=== PATIENT | female | born 1965 | race Caucasian/White ===

== ENCOUNTER 2018-02-04 22:47 | Emergency (ER) | payer SELFPAY ==
[2018-02-04] MEDS ORDERED: methylPREDNISolone Sod Succ/PF 125 MG/2 ML VIAL ONE (23:15)
[2018-02-04 23:18] LABS: #Basophils 0.1 thou/uL (0.0-0.2); #Eosinphils 0.9 thou/uL (0.0-0.7); #Lymphocytes 1.8 thou/uL (1.20-3.40); #Monocytes 0.5 thou/uL (0.11-0.59); #Neutrophils 4.4 thou/uL (1.40-6.50); %Basophils 1.1 % (0.0-1.0); %Eosinophils 11.9 % (0.0-10.0); %Lymphocytes 23.1 % (21.0-51.0); %Monocytes 6.4 % (0.0-10.0); %Neutrophils 57.6 % (42.0-75.0); Mean Corpuscular HGB CONC 34.9 g/dL (32.0-36.0); Mean Corpuscular Hemoglobin 26.8 pg (27.0-31.0); Mean Corpuscular Volume 76.8 fl (81.0-99.0); Platelet Count 245 thou/uL (130-400); RBC Distribution Width 13.4 % (11.5-14.5); Red Blood Cell (RBC) Count 4.85 mill/uL (4.20-5.40); White Blood Cell (WBC) Count 7.7 thou/uL (4.8-10.8)
--- NOTE | 2018-02-04 23:32 | RAD ---
PORTABLE CHEST ONE VIEW: 02/04/18 at 11:32 p.m. HISTORY: Shortness of breath, asthma. FINDINGS: Comparison is made with the exam of 10/24/13. The heart size is normal. The lungs are well expanded without focal areas of consolidation, pneumotho rax or pleural effusions. IMPRESSION: No acute process. POS: [facility]
[2018-02-04 23:34] LABS: ALT (SGPT) 16 U/L (8-55); AST (SGOT) 16 U/L (5-34); Albumin 4.1 g/dL (3.5-5.0); Alkaline Phosphatase 93 U/L (40-150); Anion Gap 14 mmol/L (10-20); BUN (Urea Nitrogen) 10 mg/dL (9.8-20.1); Bilirubin, Total 0.4 mg/dL (0.2-1.2); Calc. Creatinine Clearance 0 mL/min (70-130); Calcium 9.8 mg/dL (7.8-10.44); Carbon Dioxide 24 mmol/L (22-29); Chloride 107 mmol/L (98-107); Estimated GFR-MDRD 60; Glucose 92 mg/dL (70-105); Potassium 3.9 mmol/L (3.5-5.1); Protein, Total 8.1 g/dL (6.0-8.3); Sodium 141 mmol/L (136-145)
[2018-02-04 23:35] LABS: CKMB 0.9 ng/mL (0-6.6); Troponin I Less than 0.010 ng/mL (< 0.028)
[2018-02-05] MEDS ORDERED: Magnesium Sulfate 2 GM/NS 0.9% 50 ML BAG ONE (00:05)
[2018-02-05] MEDS ORDERED: diphenhydrAMINE 50 MG/ML VIAL ONE (00:59)
== END 2018-02-05 01:15 | disposition home or self-care (01) ==
LOC: SCSER 22:47
DX: J45.901 Unspecified asthma with (acute) exacerbation (principal); E78.5 Hyperlipidemia, unspecified; I10 Essential (primary) hypertension; F41.9 Anxiety disorder, unspecified; F32.9 Major depressive disorder, single episode, unspecified; Z79.899 Other long term (current) drug therapy
CPT/HCPCS: 71045; 80053; 82553; 84484; 85025; 93005; 94640; 96361; 96365; 96375; J1200; J2930; J3475; J7620

== ENCOUNTER 2018-03-23 01:47 | Emergency (ER) | payer SELFPAY ==
[2018-03-23 04:47] LABS: Bilirubin Negative (Negative); Blood, Urine Negative (Negative); Clarity CLEAR (Clear); Glucose, Urine (Dipstick) Negative (Negative); Leukocyte Small (Negative); Nitrite Negative (Negative); Protein, Urine (Dipstick) Negative (Neg-Trace); Specific Gravity, Urine 1.006 (1.002-1.036); Urobilinogen 0.2 mg/dL (0.2-1.0)
[2018-03-23 04:49] LABS: Bacteria/HPF None Seen HPF (None Seen); Hyaline Casts/LPF 0-3 HYALINE CAST LPF (0-3 Hyaline); RBC/HPF 0-3 HPF (0-3); Squamous Epithelial 0-3 HPF (0-3)
[2018-03-23] MEDS ORDERED: cefTRIAXone\\ROCEPHIN 1 GM VIAL ONE (07:05)
[2018-03-23] MEDS ORDERED: Ondansetron ODT 4 MG TAB ONE (07:05)
[2018-03-23 07:12] LABS: #Eosinphils 0.8 thou/uL (0.0-0.7); #Lymphocytes 2.2 thou/uL (1.20-3.40); #Monocytes 0.5 thou/uL (0.11-0.59); #Neutrophils 4.1 thou/uL (1.40-6.50); %Basophils 0.4 % (0.0-1.0); %Eosinophils 10.9 % (0.0-10.0); %Lymphocytes 29.1 % (21.0-51.0); %Monocytes 5.9 % (0.0-10.0); %Neutrophils 53.7 % (42.0-75.0); Hemoglobin 12.5 g/dL (12.0-16.0); Mean Corpuscular HGB CONC 34.6 g/dL (32.0-36.0); Mean Corpuscular Hemoglobin 27.5 pg (27.0-31.0); Mean Corpuscular Volume 79.4 fl (81.0-99.0); Mean Platelet Volume 7.2 fL (7.4-10.4); Platelet Count 235 thou/uL (130-400); RBC Distribution Width 14.1 % (11.5-14.5); Red Blood Cell (RBC) Count 4.55 mill/uL (4.20-5.40); White Blood Cell (WBC) Count 7.6 thou/uL (4.8-10.8)
[2018-03-23] MEDS ORDERED: cefTRIAXone\\ROCEPHIN 1 GM in Sodium Chloride 0.9% 100 ML IVPB SCH (07:15)
[2018-03-23 07:28] LABS: ALT (SGPT) 12 U/L (8-55); AST (SGOT) 16 U/L (5-34); Albumin 3.9 g/dL (3.5-5.0); Alkaline Phosphatase 89 U/L (40-150); Anion Gap 12 mmol/L (10-20); BUN (Urea Nitrogen) 9 mg/dL (9.8-20.1); Bilirubin, Total 0.5 mg/dL (0.2-1.2); Calc. Creatinine Clearance 0 mL/min (70-130); Calcium 9.6 mg/dL (7.8-10.44); Carbon Dioxide 25 mmol/L (22-29); Chloride 105 mmol/L (98-107); Estimated GFR-MDRD 72; Globulin 3.8 g/dL (2.4-3.5); Glucose 94 mg/dL (70-105); Lipase 5 U/L (8-78); Potassium 3.8 mmol/L (3.5-5.1); Protein, Total 7.7 g/dL (6.0-8.3); Sodium 138 mmol/L (136-145)
--- NOTE | 2018-03-23 08:16 | CT ---
CT OF ABDOMEN AND PELVIS: DATE: 03/23/18. COMPARISON: None. HISTORY: Left-sided back pain for 3 days, left flank pain. TECHNIQUE: Serial axial CT imaging is obtained at 5 mm intervals from lung bases through pubic symphysis without contrast. Coronal reformatted imaging obtained. FINDINGS: The visualized lung bases demonstrate subtle nonspecific ground-glass opacity within the inferomedial aspect of the left lower lobe best seen on images 5 and 8. The lack of contrast limits assessment of the viscera, bowel vascular structures, and for lymphadenop athy. The gallbladder is surgically absent. No free intraperitoneal air or fluid. Liver, spleen, pancreas, adrenal glands, and kidneys unremarka ble. The uterus appears surgically absent. No evidence for bowel inflammatory change or obstruction. The appendix appears unremarkable. The osseous structures demonstrate no acute findings. IMPRESSION: 1. No evidence for nephrolithiasis or obstructive uropathy. 2. Patchy areas of nonspecific ground-glass opacity noted in the left lower lobe. This may be infla mmatory/infectious in nature. Recommend a followup chest CT in 4-6 weeks to document resolution foll owing treatment. CODE T POS: [facility]
== END 2018-03-23 08:53 | disposition home or self-care (01) ==
LOC: ERS 01:47
DX: N39.0 Urinary tract infection, site not specified (principal); J45.901 Unspecified asthma with (acute) exacerbation; E78.5 Hyperlipidemia, unspecified; I10 Essential (primary) hypertension; F31.9 Bipolar disorder, unspecified; F41.9 Anxiety disorder, unspecified; Z79.899 Other long term (current) drug therapy
CPT/HCPCS: 36415; 74176; 80053; 81003; 81015; 83690; 85025; 87086; 94640; 96365; 96375; J0696; J2270; J7050; J7620; Q0162

== ENCOUNTER 2019-09-20 11:35 | Inpatient (IN) | payer SELFPAY ==
--- NOTE | 2019-09-20 12:08 | RAD ---
XR Chest 1 View Portable History: Wheezing Comparison: Chest radiograph February 04, 2018 Findings: Lungs are clear. No pneumothorax or effusion. Cardiac silhouette and mediastinal contours a re within normal limits. Impression: No acute intrathoracic abnormality.
[2019-09-20] MEDS ORDERED: predniSONE 20 MG TAB ONE (12:19)
[2019-09-20 12:44] LABS: #Eosinphils 0.8 thou/uL (0.0-0.7); #Lymphocytes 1.3 thou/uL (1.20-3.40); #Monocytes 0.5 thou/uL (0.11-0.59); #Neutrophils 6.1 thou/uL (1.40-6.50); %Basophils 0.4 % (0.0-1.0); %Eosinophils 9.2 % (0.0-10.0); %Lymphocytes 14.9 % (21.0-51.0); %Monocytes 5.3 % (0.0-10.0); %Neutrophils 70.2 % (42.0-75.0); Hemoglobin 12.8 g/dL (12.0-16.0); Mean Corpuscular Hemoglobin 28.2 pg (27.0-31.0); Mean Platelet Volume 7.9 fL (7.4-10.4); Platelet Count 204 thou/uL (130-400); RBC Distribution Width 13.6 % (11.5-14.5); Red Blood Cell (RBC) Count 4.54 mill/uL (4.20-5.40); White Blood Cell (WBC) Count 8.7 thou/uL (4.8-10.8)
[2019-09-20 13:07] LABS: ALT (SGPT) 12 U/L (8-55); AST (SGOT) 18 U/L (5-34); Alkaline Phosphatase 83 U/L (40-110); Anion Gap 11 mmol/L (10-20); BUN (Urea Nitrogen) 8 mg/dL (9.8-20.1); Bilirubin, Total 0.4 mg/dL (0.2-1.2); Calc. Creatinine Clearance 0 mL/min (70-130); Calcium 9.6 mg/dL (7.8-10.44); Carbon Dioxide 27 mmol/L (22-29); Chloride 105 mmol/L (98-107); Estimated GFR-MDRD 80; Globulin 3.4 g/dL (2.4-3.5); Glucose 95 mg/dL (70-105); Protein, Total 7.4 g/dL (6.0-8.3); Sodium 139 mmol/L (136-145)
[2019-09-20] MEDS ORDERED: Albuterol Sulfate 2.5 mg/0.5 ml Neb ONE (14:16)
[2019-09-20] MEDS ORDERED: Albuterol Sulfate 1.25 MG/3 ML NEB ONE ×2 (14:16→14:19)
[2019-09-20] MEDS ORDERED: Albuterol Sulfate 2.5 mg/3 ml Neb ONE (14:19)
[2019-09-20] MEDS ORDERED: Magnesium 2 GM/50 ML BAG (IN WATER) ONE (15:03)
[2019-09-20 16:17] LABS: Base Excess-Venous 0.3 mmol/L (-2.0 to 3.0); Bicarbonate (HCO3v) 25.2 mmol/L (22.0-28.0); CO2 Tension (PvCO2) 40.7 mmHg (40.0-50.0); Calcium, Ionized 1.25 mmol/L (See Comments:); Chloride 104 mmol/L (98-107); Hemoglobin - Calc 13.8 g/dL (12.0-16.0); Potassium 3.6 mmol/L (3.5-5.1); Sodium 139 mmol/L (138-145); T. Carbon Dioxide 26.4 mmol/L (22.0-28.0); vO2 Saturation-calc 94.9 % (60.0-85.0)
[2019-09-20] MEDS: Guaifenesin DM 100-10/5 ML UDCUP PO PRN (20:45)
[2019-09-20 21:59] VITALS: BMI 27.1
[2019-09-20] MEDS: Acetaminophen 325 MG TAB PO PRN (22:31)
[2019-09-21] MEDS: methylPREDNISolone Sod Succ 40 MG VIAL IVP SCH ×3 (00:06→12:09)
--- NOTE | 2019-09-21 02:20 | HP ---
REASON FOR ADMISSION: Shortness of breath. HISTORY OF PRESENT ILLNESS: This is a 53-year-old female patient who presented to her health clinic complaining of shortness of breath. She did receive neb treatments there without any improvement. She was advised to come to the emergency room. In the ER, she was found to be hypoxic, but corrects easily with oxygen. She did receive DuoNebs and prednisone p.o., but continued to be short of breath. The patient states that for the past 3-4 months, her asthma has not been well controlled. She was supposed to be on Singulair and Advair, but she cannot tolerate these medication, because they interact with her psychiatric medications. Two weeks ago she was in contact with her granddaughter who was diagnosed with RSV and she knows that her asthma is very affected by allergens. For the past 5 days, she has been very short of breath, unable to ambulate from one point to another. She is coughing producing greenish and brownish phlegm. She does have chills, but did not report any fever. She has not been improving on her inhalers . PAST MEDICAL HISTORY: 1. High cholesterol. 2. Asthma. 3. Bipolar. 4. Depression. 5. Anxiety. 6. Panic attacks. ALLERGY: To erythromycin and penicillin, which makes her head feel light, but no rash. No swelling. No difficulty with breathing. Also, she is allergic to Neosporin, adhesives and latex. Also, she cannot tolerate Advair, which can make her agitated and cause her blisters on her lips in the past. She did have a biopsy of those blisters, they are found to be benign. Also, she cannot take Singulair, because it makes her agitated. SOCIAL HISTORY: She does not smoke. Does not drink alcohol. FAMILY HISTORY: Negative for heart disease. REVIEW OF SYSTEMS: All systems reviewed except the above-mentioned and found to be negative. PHYSICAL EXAMINATION: GENERAL: Awake, alert, oriented, does not appear in distress. VITAL SIGNS: Her blood pressure is 124/82, heart rate of 110, saturating 98% on 2 L cannula. HEENT: Head is nontraumatic, normocephalic. Pupils equal, reactive. Extraocular movements are intact. Nonicteric sclerae. Well injected conjunctivae. Oral mucosa normal. Nasal mucosa normal. NECK: Supple. No adenopathy. No murmur. Thyroid palpable. Trachea is midline. No supraclavicular adenopathy. HEART: S1, S2 regular. No murmur, no gallops. No frictional rubs, nondisplaced PMI. LUNGS: Decreased air entry bilaterally. Diffuse expiratory wheezes or rhonchi. Bowel sounds are positive. Nontender abdomen. No hepatosplenomegaly. EXTREMITIES: No lower extremity edema. No cyanosis. NEUROLOGIC: Cranial nerves II through XII within normal limits. Normal motor function. Normal sensory function and reflexes. LABORATORY DATA: Lab work shows WBC of 8.7, hemoglobin of 12.8, platelets 204. VBG shows a pH of 7.399, pCO2 of 40.7. IMAGING: Chest x-ray shows no acute abnormality. ASSESSMENT/PLAN: This is a 53-year-old female presenting with uncontrolled asthma. 1. Pulmonary. The patient will be on neb treatments and IV steroids. I am debating whether to start her on antibiotics. Her sputum is greenish brown and brownish in color. I might start her on a quinolone since she is allergic to other options. 2. In regard to her bipolar disorder, we will resume her current medications. 3. In regard to her high cholesterol, we will resume her current regimen. 4. For deep venous thrombosis prophylaxis, should be on sequential compression devices. Job ID: [id number]
[2019-09-21 07:14] LABS: Anion Gap 9 mmol/L (10-20); BUN (Urea Nitrogen) 8 mg/dL (9.8-20.1); Calc. Creatinine Clearance 96 mL/min (70-130); Calcium 9.3 mg/dL (7.8-10.44); Carbon Dioxide 28 mmol/L (22-29); Chloride 104 mmol/L (98-107); Estimated GFR-MDRD 78; Glucose 113 mg/dL (70-105); Potassium 3.6 mmol/L (3.5-5.1); Sodium 137 mmol/L (136-145)
--- NOTE | 2019-09-21 12:59 | PDOC.HOSPP ---
- Subjective Encounter Date: 09/21/19 Encounter Time: 12:56 Subjective: The patient continues to have persistent shortness of breath and wheezing . She denies cough. Two of her grand-daughters had RSV. She had severe headache last night and couldn't sleep because of it. She also has some mild muscle aches. Prior to admission, she was using her rescue inhaler 7 times a day. She states she stopped taking singulair and advair because she felt it was causing blisters to form on her lips. She does give a history of fever blisters but says she hasn't really had any since stopping her inhalers. Currently her lip feels numb but says that is from the lip biopsy that she had to rule out cancer. - Objective Vital Signs & Weight: Vital Signs (12 hours) Temp Pulse Resp BP Pulse Ox 09/21/19 12:40 83 18 97 09/21/19 11:23 98.1 F 87 20 109/75 97 09/21/19 08:00 97 09/21/19 07:26 79 18 97 09/21/19 07:16 98.1 F 87 20 119/82 95 09/21/19 04:45 97.5 F L 87 20 139/94 H 97 09/21/19 03:54 87 20 97 Weight Weight 158 lb 1 oz Result Diagrams: 09/20/19 12:36 09/21/19 06:11 Hospitalist ROS - Review of Systems Constitutional: denies: fever, chills Cardiovascular: denies: chest pain, palpitations, orthopnea - Medication Medications: Active Medications Generic Name Dose Route Start Last Admin Trade Name Conradq PRN Reason Stop Dose Admin Acetaminophen 650 mg 09/20/19 22:17 09/20/19 22:31 Tylenol PO 650 mg Q4H PRN Administration Fever/Mild Pain Albuterol/Ipratropium 3 ml 09/20/19 19:00 09/21/19 12:40 Duoneb NEB 3 ml [id number] JAREN Administration Albuterol/Ipratropium 3 ml 09/20/19 18:44 09/21/19 03:54 Duoneb NEB 3 ml Q3H PRN Administration SOB &/or Wheezing Guaifenesin/Dextromethorphan 10 ml 09/20/19 18:42 09/20/19 20:45 Robitussin Dm PO 10 ml Q4H PRN Administration Cough Levofloxacin 750 mg/ Device 150 mls @ 100 mls/hr 09/20/19 20:00 09/20/19 20: 44 IVPB 150 mls 2000 [facility] Administration - Exam General Appearance: NAD, awake alert Eye: PERRL, anicteric sclera ENT: normocephalic atraumatic, no oropharyngeal lesions, moist mucosa Neck: supple, symmetric, no JVD, no thyromegaly, no lymphadenopathy, no carotid bruit Heart: RRR, no murmur, no gallops, no rubs, normal peripheral pulses Respiratory: CTAB, no rales, no ronchi, normal chest expansion, no tachypnea, normal percussion Respiratory - other findings: diminished breath sounds bilaterally with diffuse wheezing Gastrointestinal: soft, non-tender, non-distended, normal bowel sounds, no palpable masses, no hepatomegaly, no splenomegaly, no bruit Extremities: no cyanosis, no clubbing, no edema Skin: normal turgor, no lesions, no rashes Neurological: cranial nerve grossly intact, normal sensation to touch, no weakness, no focal deficits, no new deficit Musculoskeletal: normal tone, normal strength, no muscle wasting Psychiatric: normal affect, normal behavior, A&O x 3 Hosp A/P - Plan Chest Xray: normal This is a 53 year old female with asthma exacerbation, possibly triggered by RSV Asthma exacerbation - continue IV steroids, will increase to 60 mg IV q6 hours - check respiratory viral panel - chest X ray was normall Depression Bipolar - wellbutrin and zoloft - seroquel Hyperlipidemia - continue pravastatin Code status: full code
[2019-09-21] MEDS: methylPREDNISolone Sod Succ/PF 125 MG/2 ML VIAL IVP SCH ×2 (17:54→23:13)
[2019-09-21] MEDS: Guaifenesin DM 100-10/5 ML UDCUP PO PRN (20:38)
[2019-09-21] MEDS: Acetaminophen 325 MG TAB PO PRN (20:39)
[2019-09-22] MEDS: methylPREDNISolone Sod Succ/PF 125 MG/2 ML VIAL IVP SCH ×4 (05:38→23:41)
--- NOTE | 2019-09-22 19:45 | PDOC.HOSPP ---
- Subjective Encounter Date: 09/22/19 Encounter Time: 14:00 Subjective: The patient states her breathing has improved, she has slight dry cough. She ambulated on room air and dropped to 86% and was 91% at rest and was told she needs 2L. Family states that they could hear wheezing outside the room last night but today not the case - Objective Vital Signs & Weight: Vital Signs (12 hours) Temp Pulse Resp BP Pulse Ox 09/22/19 19:18 97.9 F 88 18 115/77 100 09/22/19 19:13 89 16 96 09/22/19 13:15 92 18 09/22/19 08:00 95 Weight Weight 158 lb 1 oz I&O: 09/21/19 09/22/19 09/23/19 06:59 06:59 06:59 Intake Total 1820 742 Balance 1820 742 Result Diagrams: 09/20/19 12:36 09/21/19 06:11 Hospitalist ROS - Review of Systems Constitutional: denies: fever, chills - Medication Medications: Active Medications Generic Name Dose Route Start Last Admin Trade Name Freq PRN Reason Stop Dose Admin Acetaminophen 650 mg 09/20/19 22:17 09/21/19 20:39 Tylenol PO 650 mg Q4H PRN Administration Fever/Mild Pain Albuterol/Ipratropium 3 ml 09/20/19 19:00 09/22/19 19:13 Duoneb NEB 3 ml [id number] JAREN Administration Albuterol/Ipratropium 3 ml 09/20/19 18:44 09/21/19 03:54 Duoneb NEB 3 ml Q3H PRN Administration SOB &/or Wheezing Guaifenesin/Dextromethorphan 10 ml 09/20/19 18:42 09/21/19 20:38 Robitussin Dm PO 10 ml Q4H PRN Administration Cough Levofloxacin 750 mg/ Device 150 mls @ 100 mls/hr 09/20/19 20:00 09/21/19 20: 36 IVPB 150 mls 2000 JAREN Administration Methylprednisolone Sodium Succinate 60 mg 09/21/19 18:00 09/22/19 17:12 Solu-Medrol IVP 60 mg Q6HR JAREN Administration - Exam General Appearance: NAD, awake alert Eye: PERRL, anicteric sclera ENT: normocephalic atraumatic, no oropharyngeal lesions Neck: supple, symmetric, no JVD, no thyromegaly Heart: RRR, no murmur, no gallops, no rubs Respiratory: CTAB, no wheezes, no rales Respiratory - other findings: diminished breath sounds at the base Gastrointestinal: soft, non-tender, non-distended Extremities: no cyanosis, no clubbing, no edema Skin: normal turgor, no lesions, no rashes Neurological: cranial nerve grossly intact, normal sensation to touch, no focal deficits, no new deficit Hosp A/P - Plan Chest Xray: normal This is a 53 year old female with asthma exacerbation, possibly triggered by RSV Asthma exacerbation - continue IV steroids at 60 mg IV q6 hours - respiratory viral panel normal - chest X ray was normal Depression Bipolar - wellbutrin and zoloft - seroquel Hyperlipidemia - continue pravastatin Code status: full code
[2019-09-22] MEDS: Acetaminophen 325 MG TAB PO PRN (20:29)
[2019-09-22] MEDS: Guaifenesin DM 100-10/5 ML UDCUP PO PRN (20:29)
[2019-09-23] MEDS: methylPREDNISolone Sod Succ/PF 125 MG/2 ML VIAL IVP SCH ×2 (05:01→12:08)
[2019-09-23 07:44] LABS: Hemoglobin 12.2 g/dL (12.0-16.0); Mean Corpuscular HGB CONC 34.8 g/dL (32.0-36.0); Mean Corpuscular Hemoglobin 29.2 pg (27.0-31.0); Mean Platelet Volume 8.2 fL (7.4-10.4); Platelet Count 215 thou/uL (130-400); RBC Distribution Width 13.6 % (11.5-14.5); Red Blood Cell (RBC) Count 4.17 mill/uL (4.20-5.40); White Blood Cell (WBC) Count 10.7 thou/uL (4.8-10.8)
[2019-09-23 08:08] LABS: ALT (SGPT) 10 U/L (8-55); AST (SGOT) 12 U/L (5-34); Albumin 3.8 g/dL (3.5-5.0); Alkaline Phosphatase 70 U/L (40-110); Anion Gap 11 mmol/L (10-20); BUN (Urea Nitrogen) 14 mg/dL (9.8-20.1); Bilirubin, Total 0.2 mg/dL (0.2-1.2); Calc. Creatinine Clearance 101 mL/min (70-130); Calcium 9.7 mg/dL (7.8-10.44); Carbon Dioxide 25 mmol/L (22-29); Chloride 108 mmol/L (98-107); Estimated GFR-MDRD 83; Globulin 3.2 g/dL (2.4-3.5); Glucose 152 mg/dL (70-105); Potassium 3.9 mmol/L (3.5-5.1); Sodium 140 mmol/L (136-145)
[2019-09-23] MEDS ORDERED: Lorazepam 1 MG TAB PO PRN (14:11)
--- NOTE | 2019-09-23 14:37 | PDOC.HOSPP ---
- Subjective Encounter Date: 09/23/19 Encounter Time: 14:35 Subjective: Ms. Foster was seen today in follow-up of Asthma/COPD exacerbation. She says she is breathing a little better, but when she walks or talks she gets short of breath. - Objective Vital Signs & Weight: Vital Signs (12 hours) Temp Pulse Resp BP Pulse Ox 09/23/19 13:31 76 12 09/23/19 08:00 96 09/23/19 07:52 97.9 F 72 16 115/78 96 09/23/19 06:15 65 12 Weight Weight 158 lb 1 oz I&O: 09/22/19 09/23/19 09/24/19 06:59 06:59 06:59 Intake Total 1820 1312 Balance 1820 1312 Result Diagrams: 09/23/19 07:31 09/23/19 07:31 Hospitalist ROS - Medication Medications: Active Medications Generic Name Dose Route Start Last Admin Trade Name Freq PRN Reason Stop Dose Admin Acetaminophen 650 mg 09/20/19 22:17 09/22/19 20:29 Tylenol PO 650 mg Q4H PRN Administration Fever/Mild Pain Albuterol/Ipratropium 3 ml 09/20/19 19:00 09/23/19 13:31 Duoneb NEB 3 ml [id number] JAREN Administration Albuterol/Ipratropium 3 ml 09/20/19 18:44 09/21/19 03:54 Duoneb NEB 3 ml Q3H PRN Administration SOB &/or Wheezing Guaifenesin/Dextromethorphan 10 ml 09/20/19 18:42 09/22/19 20:29 Robitussin Dm PO 10 ml Q4H PRN Administration Cough Levofloxacin 750 mg/ Device 150 mls @ 100 mls/hr 09/20/19 20:00 09/22/19 20: 29 IVPB 150 mls 2000 JAREN Administration - Exam Eye: PERRL Heart: RRR, no murmur, no gallops, no rubs, normal peripheral pulses Respiratory: CTAB (with occasional rhonchi), no rales Gastrointestinal: soft, non-tender, non-distended, normal bowel sounds, no palpable masses, no hepatomegaly Extremities: no cyanosis, no edema Hosp A/P (1) Acute respiratory failure with hypoxemia Code(s): J96.01 - ACUTE RESPIRATORY FAILURE WITH HYPOXIA Status: Acute (2) Asthma exacerbation Code(s): J45.901 - UNSPECIFIED ASTHMA WITH (ACUTE) EXACERBATION Status: Acute (3) Bipolar disorder Code(s): F31.9 - BIPOLAR DISORDER, UNSPECIFIED Status: Chronic (4) Depression Code(s): F32.9 - MAJOR DEPRESSIVE DISORDER, SINGLE EPISODE, UNSPECIFIED Status : Chronic - Plan * Acute respiratory failure with hypoxemia- slowly improving- Will change the steroids to p.o. * Continue Duonebs, and Levaquin * I suspect she has some underlying COPD- will add Dulera- discussed getting an outpatient PFT * Bipolar Disorder- stable
[2019-09-23] MEDS: Mometasone/Formoterol 120 PUFF INHALER INH SCH (19:48)
[2019-09-23 19:55] VITALS: TEMP 97.8
[2019-09-23] MEDS ORDERED: Atorvastatin Calcium 10 MG TAB PO SCH (21:00)
[2019-09-24 07:32] VITALS: BP 116/76
[2019-09-24] MEDS ORDERED: predniSONE 20 MG TAB PO SCH (08:00)
[2019-09-24] MEDS ORDERED: Bupropion 150 MG XL TAB PO SCH (09:00)
[2019-09-24] MEDS: Mometasone/Formoterol 120 PUFF INHALER INH SCH (13:41)
--- NOTE | 2019-09-24 14:40 | PDOC.HOSPP ---
- Subjective Encounter Date: 09/24/19 Encounter Time: 14:38 Subjective: Ms. Foster was seen today in follow-up of Asthma/COPD exacerbation. She says she is feeling a bit better today, no new complaints. - Objective Vital Signs & Weight: Vital Signs (12 hours) Temp Pulse Resp BP Pulse Ox 09/24/19 13:41 76 16 09/24/19 08:00 97 09/24/19 07:30 97.8 F 76 18 116/76 97 Weight Weight 158 lb 1 oz I&O: 09/23/19 09/24/19 09/25/19 06:59 06:59 06:59 Intake Total 1312 1580 Balance 1312 1580 Result Diagrams: 09/23/19 07:31 09/23/19 07:31 Hospitalist ROS - Medication Medications: Active Medications Generic Name Dose Route Start Last Admin Trade Name Freq PRN Reason Stop Dose Admin Acetaminophen 650 mg 09/20/19 22:17 09/22/19 20:29 Tylenol PO 650 mg Q4H PRN Administration Fever/Mild Pain Albuterol/Ipratropium 3 ml 09/20/19 19:00 09/24/19 13:41 Duoneb NEB 3 ml [id number] JAREN Administration Albuterol/Ipratropium 3 ml 09/20/19 18:44 09/21/19 03:54 Duoneb NEB 3 ml Q3H PRN Administration SOB &/or Wheezing Atorvastatin Calcium 10 mg 09/23/19 21:00 09/23/19 20:48 Lipitor PO 10 mg HS JAREN Administration Bupropion HCl 150 mg 09/24/19 09:00 09/24/19 08:45 Wellbutrin Xl PO 150 mg DAILY JAREN Administration Guaifenesin/Dextromethorphan 10 ml 09/20/19 18:42 09/22/19 20:29 Robitussin Dm PO 10 ml Q4H PRN Administration Cough Levofloxacin 750 mg/ Device 150 mls @ 100 mls/hr 09/20/19 20:00 09/23/19 20: 47 IVPB 150 mls 2000 JAREN Administration Mometasone Furoate/Formoterol Fumar 1 puff 09/23/19 18:30 09/24/19 13:41 Dulera 100 Mcg/5 Mcg Inhaler INH 1 puff BID-RT JAREN Administration Prednisone 40 mg 09/24/19 08:00 09/24/19 08:45 Prednisone PO 40 mg QAM-WM JAREN Administration Quetiapine Fumarate 200 mg 09/23/19 21:00 09/23/19 20:47 Seroquel PO 200 mg HS JAREN Administration Sertraline HCl 200 mg 09/23/19 21:00 09/23/19 20:48 Zoloft PO 200 mg HS JAREN Administration - Exam Eye: PERRL, anicteric sclera Heart: RRR, no murmur, no gallops, no rubs, normal peripheral pulses Respiratory: CTAB, no wheezes, no rales, no ronchi, normal chest expansion Gastrointestinal: soft, non-tender, non-distended, normal bowel sounds Extremities: no edema Hosp A/P (1) Acute respiratory failure with hypoxemia Code(s): J96.01 - ACUTE RESPIRATORY FAILURE WITH HYPOXIA Status: Acute (2) Asthma exacerbation Code(s): J45.901 - UNSPECIFIED ASTHMA WITH (ACUTE) EXACERBATION Status: Acute (3) Bipolar disorder Code(s): F31.9 - BIPOLAR DISORDER, UNSPECIFIED Status: Chronic (4) Depression Code(s): F32.9 - MAJOR DEPRESSIVE DISORDER, SINGLE EPISODE, UNSPECIFIED Status : Chronic - Plan * Acute respiratory failure with hypoxemia- slowly improving- she tolerated the step down to oral steroids * Continue Duonebs, and Levaquin * Will check her oxygen levels again * Bipolar Disorder- stable * Hopefully home this evening
--- NOTE | 2019-09-24 19:08 | DIS ---
DATE OF ADMISSION: 09/20/2019 DATE OF DISCHARGE: 09/24/2019 DISCHARGE DISPOSITION: Home. DISCHARGE DIAGNOSES: 1. Acute respiratory failure with hypoxemia. 2. Asthma exacerbation. 3. Probable chronic obstructive pulmonary disease exacerbation. 4. History of bipolar disorder. 5. Depression. 6. Dyslipidemia. DISCHARGE MEDICATIONS: 1. Prednisone taper 40 mg p.o. daily for four days. 2. Dulera 100/5 mcg one puff twice daily. 3. Levaquin 500 mg p.o. daily for 4 days. 4. Zoloft 200 mg at bedtime. 5. Seroquel 200 mg at bedtime. 6. Pravastatin 40 mg at bedtime. 7. Lorazepam 1 mg daily. 8. Wellbutrin XL 150 mg p.o. daily. CODE STATUS: Full code. ALLERGIES: BACITRACIN, ERYTHROMYCIN BASE, LATEX, NATURAL RUBBER, NEOMYCIN, AND PENICILLIN. HOSPITAL COURSE: Ms. Foster is a pleasant 53-year-old female, who presented to the emergency room with complaints of shortness of breath as well as cough. She says she has DuoNeb at home, but this was not helping her symptoms. As a result, she came into the ER for evaluation. She was found to be in a presumed asthma exacerbation. She likely has some component of COPD as well. She admits to being exposed to quite a bit of secondhand smoke and her father had COPD as well and she could potentially have a hereditary form of COPD such as alpha-1 antitrypsin disorder. She was treated presumably for this with IV steroids, antibiotics, and DuoNeb and was placed on a long-acting beta agonist. She improved to the point where she could be weaned completely off oxygen and she will be discharged home with a prednisone taper as well as to continue her antibiotic course. She has been urged to follow up with her primary care physician in a couple of days and consider an outpatient pulmonary function test. Job ID: [id number]
--- NOTE | 2019-09-28 07:00 | PQF ---
CHANDLER Bass MD [id number] CLINICAL DOCUMENTATION CLARIFICATION FORM: POST DISCHARGE Addendum to original discharge summary date: ____ Late entry note date: __ DATE: 09/28/2019 ATTN: CHANDLER SYK MD Please exercise your independent, professional judgment in responding to the clarification form. Clinical indicators are provided on the bottom of this form for your review Diagnosis: Acute respiratory failure with hypoxemia Present on Admission (POA): [X ] Yes [ ] No [ ] Unable to determine Coding guidelines require hospitals to identify whether a diagnosis was present on admission (POA) or not. To accurately assign the appropriate POA indicator, this information must be clearly documented within the medical record. CLINICAL INDICATORS - SIGNS / SYMPTOMS / LABS -Mild respiratory distress-ED record, 09/20, Noe Witt MD -Hypoxia- ED record, 09/20, Noe Witt MD -presents with wheezing, dyspnea anfd hypoxia-ED record, 09/20, Noe Witt MD -she ambulated on room air and dropped to 86% and was 91%-Hospital PN, 09/22, Kimberly Dias MD -Acute respiratory failure with hypoxemia- 09/23, George Reddy MD RISK FACTORS: - Asthma exacerbation--Hospital PN, 09/21, Kimberly Dias MD TREATMENT: -DuoNeb- DEC, 09/20 -Albuterol Sulfate.IV- DEC, 09/20 (This form is maintained as a part of the permanent medical record) 2014 [employer]. All Rights Reserved Ev Gonzalez [not provided] [not provided] TUCKER
== END 2019-09-24 17:37 | disposition home or self-care (01) | DRG 189 ==
LOC: ERS 11:35 → T4-B 20:05
PROVIDERS: ADMIT Internal Medicine; ATTEND Internal Medicine
DX: J96.01 Acute respiratory failure with hypoxia (principal); J45.901 Unspecified asthma with (acute) exacerbation; J44.1 Chronic obstructive pulmonary disease with (acute) exacerbation; E78.00 Pure hypercholesterolemia, unspecified; F31.9 Bipolar disorder, unspecified; E78.5 Hyperlipidemia, unspecified; Z88.0 Allergy status to penicillin; Z88.8 Allergy status to other drugs, medicaments and biological substances; Z88.1 Allergy status to other antibiotic agents; Z91.040 Latex allergy status; Z90.710 Acquired absence of both cervix and uterus
CPT/HCPCS: 36415; 71045; 80048; 80053; 82330; 82803; 83880; 84484; 85025; 85027; 87633; 93005; 94150; 94640; 94644; 94760; 96365; J1956; J2920; J2930; J3475; J7512; J7611; J7620

== ENCOUNTER 2020-01-02 07:34 | Inpatient (IN) | payer OTHER ==
[2020-01-02] MEDS ORDERED: Acetaminophen 500 MG TAB ONE (08:01)
[2020-01-02 08:10] LABS: #Eosinphils 0.7 thou/uL (0.0-0.7); #Lymphocytes 1.7 thou/uL (1.20-3.40); #Monocytes 0.5 thou/uL (0.11-0.59); #Neutrophils 6.3 thou/uL (1.40-6.50); %Basophils 0.1 % (0.0-1.0); %Lymphocytes 17.9 % (21.0-51.0); %Monocytes 5.5 % (0.0-10.0); %Neutrophils 68.4 % (42.0-75.0); Hemoglobin 12.4 g/dL (12.0-16.0); Mean Corpuscular HGB CONC 34.5 g/dL (32.0-36.0); Mean Corpuscular Hemoglobin 28.2 pg (27.0-31.0); Mean Corpuscular Volume 81.8 fL (78.0-98.0); Mean Platelet Volume 7.8 fL (7.4-10.4); Platelet Count 242 thou/uL (130-400); RBC Distribution Width 14.5 % (11.5-14.5); Red Blood Cell (RBC) Count 4.41 mill/uL (4.20-5.40); White Blood Cell (WBC) Count 9.2 thou/uL (4.8-10.8)
--- NOTE | 2020-01-02 08:13 | RAD ---
Exam: Chest one view HISTORY:Cough. Comparison: 09/20/2019 FINDINGS: Cardiac silhouette: Normal Aorta: Unremarkable Pulmonary vessels: Normal Costophrenic angles: Clear LUNGS: No masses or consolidation. Pneumothorax: None Osseous abnormalities: None IMPRESSION: No acute cardiopulmonary process.
[2020-01-02 08:40] LABS: ALT (SGPT) 11 U/L (8-55); AST (SGOT) 18 U/L (5-34); Albumin 4.1 g/dL (3.5-5.0); Alkaline Phosphatase 89 U/L (40-110); Anion Gap 12 mmol/L (10-20); BUN (Urea Nitrogen) 5 mg/dL (9.8-20.1); Bilirubin, Total 0.6 mg/dL (0.2-1.2); Calc. Creatinine Clearance 0 mL/min (70-130); Calcium 9.2 mg/dL (7.8-10.44); Carbon Dioxide 25 mmol/L (22-29); Chloride 106 mmol/L (98-107); Estimated GFR-MDRD 79; Globulin 2.8 g/dL (2.4-3.5); Glucose 96 mg/dL (70-105); Potassium 3.7 mmol/L (3.5-5.1); Protein, Total 6.9 g/dL (6.0-8.3); Sodium 139 mmol/L (136-145)
[2020-01-02] MEDS ORDERED: Rocuronium Bromide 10 MG/ML (10ML VIAL) ONE (09:03)
[2020-01-02] MEDS ORDERED: PROPOFOL 200 MG/20 ML VIAL ONE (09:03)
[2020-01-02] MEDS ORDERED: Cefepime 2 GM VIAL ONE ×2 (10:07→10:10)
[2020-01-02] MEDS ORDERED: Magnesium 2 GM/50 ML BAG (IN WATER) ONE (10:07)
[2020-01-02] MEDS ORDERED: Ipratropium Oral Inhaler INH SCH (13:00)
[2020-01-02] MEDS ORDERED: Lorazepam 1 MG TAB PO PRN (13:02)
[2020-01-02 13:38] LABS: Base Excess (BEa) -4.6 mEq/L (-2.0 to +3.0); CO2 Tension 59.9 mmHg (35.0-45.0); Calcium, Ionized 1.23 mmol/L (1.12-1.30); Carboxyhemoglobin (COHb) 0.9 gm% (0.0-3.0); O2 Tension (PaO2), arterial 68.6 mmHg (80.0-100.0)
[2020-01-02 13:47] LABS: ALV-art Gradient 27.645 (0-20); Puncture Site RRA; pH, Arterial 7.22 (7.35-7.45)
[2020-01-02] MEDS: methylPREDNISolone Sod Succ 40 MG VIAL IVP SCH ×2 (13:50→22:23)
--- NOTE | 2020-01-02 14:31 | HP ---
HISTORY OF PRESENT ILLNESS: The patient is a 54-year-old female with history of chronic obstructive pulmonary disease, hyperlipidemia, and hypertension, who presented to the hospital with worsening shortness of breath over the past 3 days associated with cough productive of greenish sputum. In the ER, the patient was found to be febrile, tachypneic, and tachycardiac. Flu test was negative. The patient did have an exposure to flu, through her granddaughter about a couple of weeks ago. The patient also endorsed some episodes of diarrhea, but no vomiting or abdominal pain. During the time of my assessment, the patient appeared to be severely short of breath. She was not able to finish any sentences. REVIEW OF SYSTEMS: Negative except as noted in HPI. PAST MEDICAL HISTORY: As above. PAST SURGICAL HISTORY: Positive for nasal surgery, endometriosis since surgery, right finger surgery in addition to section and cholecystectomy. SOCIAL HISTORY: The patient denies alcohol use, illicit drug use, or smoking. PHYSICAL EXAMINATION: GENERAL: The patient is alert and oriented x3. She appears to be tachypneic. She is using her accessory muscles of respiration. NECK: Supple. LUNGS: Auscultation is showing decreased air entry and wheezing bilaterally. CARDIOVASCULAR: Showing normal S1 and S2. No murmurs, rubs, or gallops. The patient is tachycardic. ABDOMEN: Soft, nontender, and nondistended. NEUROLOGICAL: Unremarkable. LABORATORY DATA: ABG revealed evidence of respiratory acidosis with hypercarbia. ASSESSMENT: 1. Acute respiratory failure with hypoxia. 2. Chronic obstructive pulmonary disease exacerbation. 3. Rule out coronavirus and other respiratory viruses. 4. Hypertension. 5. Hyperlipidemia. PLAN: The patient will be admitted to the intensive care unit. She is not a candidate for nebulized treatments or BiPAP due to COVID-19 rule out. She will likely be intubated and mechanically ventilated. I have discussed this with Dr. Ozuna. We will also initiate IV corticosteroids and IV levofloxacin. Job ID: [id number] [facility]
[2020-01-02] MEDS ORDERED: Propofol 1,000 MG/100 ML VIAL IV ONE (14:36)
[2020-01-02] MEDS ORDERED: Ventilator Sedation Protocol 1 EACH FS ONE (14:48)
[2020-01-02] MEDS ORDERED: Vecuronium 10 MG VIAL IV PRN (14:49)
[2020-01-02] MEDS ORDERED: Magnesium Sulfate 3 GM in Sodium Chloride 0.9% 100 ML IVPB SCH (15:00)
--- NOTE | 2020-01-02 15:14 | CON ---
DATE OF CONSULTATION: 01/02/2020 HISTORY OF PRESENT ILLNESS: Ms. Foster is a 54-year-old female. She tells me she has asthma. She denies being a smoker. I did find a past visit where she was admitted with a diagnosis of COPD, but I do not find any old pulmonary function tests. She presented with several days of increasing shortness of breath. She says she has been homebound for several weeks. The last contact she says she has had, has been with a grandchild three weeks ago that had the flu. She was actually in the hospital in September and says she never really fully recovered from that hospitalization. The old records say her granddaughter had respiratory syncytial virus. I did find a respiratory panel done when she was in the hospital in September that showed that she was negative for RSV. She is barely able to speak in two words. She was admitted to the floor and then transferred to the ICU. PAST MEDICAL HISTORY: Remarkable for lipid disorder, asthma, bipolar illness, anxiety and panic attacks. ALLERGIES: SHE REPORTS ALLERGIES TO ERYTHROMYCIN AND PENICILLIN. THERE IS REPORT SHE DOES NOT TOLERATE ADVAIR, BUT I SUSPECT THAT IS BECAUSE OF THRUSH. SHE SAYS SINGULAIR MAKES HER AGITATED. SOCIAL HISTORY: She is a nonsmoker and nondrinker. FAMILY HISTORY: Negative for lung disease in early age. REVIEW OF SYSTEMS: Not otherwise obtainable. PHYSICAL EXAMINATION: VITAL SIGNS: Heart rate 120, respiratory rates in the high 20s, blood pressure was 160/120. HEAD AND NECK: Unremarkable other than being obese. LUNGS: Clear. HEART: Regular rhythm. No S3. ABDOMEN: Soft and nontender. EXTREMITIES: Without clubbing, cyanosis, or edema. IMPRESSION: Status asthmaticus. Her chest radiograph is clear. Respiratory failure. Her blood gas showed pH of 7.22. I do not think she will turn around quickly. There is some question of COVID, although I feel that this is unlikely to be a COVID case, given the fact that she has been in the house most of the time. I am sure she has had contact with some body, but I think it is more likely that she simply never really gotten full control of her asthma since her last hospitalization. I have recommended intubation. I explained to her in detail and she agreed to proceed. CRITICAL CARE TIME: 40 minutes excluding procedure. Job ID: [id number] [facility]
[2020-01-02] MEDS ORDERED: DISCONTINUE PREVIOUS NARCOTIC PAIN MEDICATIONS AND BENZODIAZEPINES FS SCH (15:39)
[2020-01-02] MEDS ORDERED: Fentanyl BOLUS 250 ML IVPB PRN (15:39)
[2020-01-02] MEDS ORDERED: Propofol BOLUS 1,000 MG/100 ML VIAL IV PRN (15:39)
[2020-01-02] MEDS ORDERED: Lorazepam 2 MG/ML VIAL SLOW IVP PRN (15:39)
[2020-01-02] MEDS ORDERED: Morphine 2 MG/ML SYRINGE SLOW IVP PRN (15:39)
[2020-01-02] MEDS ORDERED: fentaNYL Citrate/PF 2,000 MCG in Sodium Chloride 0.9% 60 ML IV SCH (15:39)
[2020-01-02] MEDS ORDERED: Vecuronium 10 MG VIAL ONE (16:37)
[2020-01-02] MEDS: Sodium Chloride 0.45% 1,000 ML IV SCH (16:45)
--- NOTE | 2020-01-02 17:43 | OP ---
DATE OF PROCEDURE: 01/02/2020 PROCEDURE: Intubation. DESCRIPTION OF PROCEDURE: She was given 10 mg of etomidate. She cooperated with bite block being put in her mouth. Her throat was sprayed with Cetacaine spray. I was unable to quickly visualize her vocal cords, given her obesity, so the bronchoscope was advanced through her right naris easily to her cords and advanced through her cords. She was easily intubated at that point. She is connected to mechanical ventilation. We will connect her to the ventilator and begin frequent nebulizer treatments as well as IV steroids and empiric single agent antimicrobial therapy. She tolerated the procedure well. There were no endobronchial lesion seen on quick endobronchial inspection, both right and left lungs. Job ID: [id number]
[2020-01-02] MEDS: Atorvastatin Calcium 10 MG TAB PO SCH (22:22)
[2020-01-03] MEDS: Sodium Chloride 0.45% 1,000 ML IV SCH ×3 (01:46→20:23)
[2020-01-03 04:29] LABS: Band 1 % (5-11); Hemoglobin 11.5 g/dL (12.0-16.0); Lymphocytes 3 % (21-51); MDiff Complete? YES; Mean Corpuscular HGB CONC 33.8 g/dL (32.0-36.0); Mean Corpuscular Hemoglobin 27.6 pg (27.0-31.0); Mean Corpuscular Volume 81.8 fL (78.0-98.0); Mean Platelet Volume 7.7 fL (7.4-10.4); Monocytes 2 % (0-10); Neutrophil 94 % (42-75); Platelet Count 229 thou/uL (130-400); Platelet Morphology Comment Appears Adequate; RBC Distribution Width 14.3 % (11.5-14.5); Red Blood Cell (RBC) Count 4.14 mill/uL (4.20-5.40)
[2020-01-03 04:46] LABS: Anion Gap 12 mmol/L (10-20); BUN (Urea Nitrogen) 5 mg/dL (9.8-20.1); Calc. Creatinine Clearance 119 mL/min (70-130); Calcium 8.7 mg/dL (7.8-10.44); Carbon Dioxide 24 mmol/L (22-29); Chloride 106 mmol/L (98-107); Estimated GFR-MDRD 87; Glucose 124 mg/dL (70-105); Potassium 3.7 mmol/L (3.5-5.1); Sodium 138 mmol/L (136-145)
[2020-01-03] MEDS: methylPREDNISolone Sod Succ 40 MG VIAL IVP SCH ×3 (06:16→21:14)
[2020-01-03] MEDS: Enoxaparin Sodium 40 MG/0.4 ML SYRINGE SC SCH (07:36)
[2020-01-03] MEDS: Bupropion 150 MG XL TAB PO SCH (07:39)
[2020-01-03] MEDS ORDERED: FLU VACC QS2019-20(6MOS UP)/PF 60 MCG/0.5 ML SYRINGE IM ONE (09:00)
[2020-01-03] MEDS: Propofol 1,000 MG/100 ML VIAL IV PRN ×2 (09:10→18:49)
--- NOTE | 2020-01-03 09:19 | RAD ---
SINGLE VIEW CHEST: Date: 01/03/2020 COMPARISON: 01/02/2020. HISTORY: Ventilated patient with respiratory failure. FINDINGS: Single view of the chest shows normal sized cardiomediastinal silhouette. An endotracheal tube is see n with its tip at the lower border of the clavicles. A NG tube is seen in the stomach. There is no ev idence of consolidation. A small left pleural effusion is seen with adjacent atelectasis. IMPRESSION: Small left pleural effusion with adjacent atelectasis. POS: [facility]
--- NOTE | 2020-01-03 14:31 | PRG ---
DATE OF SERVICE: 01/03/2020 SUBJECTIVE: Joss Foster is in no distress today. Her COVID is ruled out. OBJECTIVE: VITAL SIGNS: Heart rate 102, blood pressure 137/86. NEUROLOGIC: She follows commands. She moves all extremities equally. LUNGS: Her expiratory phase has improved dramatically. HEART: Regular rhythm. ABDOMEN: Soft. EXTREMITIES: Without edema. LABORATORY DATA: White count 10, hemoglobin 11.5, platelets 229. Electrolytes are normal. COVID screen was negative. Chest x-ray shows no new infiltrates. IMPRESSION: Status asthmaticus with respiratory failure. Her radiograph shows some small area of atelectasis in her left base, which is likely secondary to mucus plugging. She will continue to be mechanically ventilated. We will consider weaning from mechanical ventilation tomorrow. CRITICAL CARE TIME: 30 minutes. Job ID: [id number] [facility]
[2020-01-03] MEDS: Atorvastatin Calcium 10 MG TAB PO SCH (20:10)
--- NOTE | 2020-01-03 20:51 | PDOC.HOSPP ---
- Subjective Encounter Date: 01/03/20 Subjective: The patient remains on a ventilator. - Objective Vital Signs & Weight: Vital Signs (12 hours) Temp Pulse Resp BP Pulse Ox 01/03/20 19:00 99.7 F H 01/03/20 18:36 91 01/03/20 18:35 96 16 98 01/03/20 16:00 99.4 F 14 100 01/03/20 15:42 99 01/03/20 13:37 102 H 137/86 01/03/20 10:25 94 01/03/20 10:00 13 Weight Admit Weight 179 lb Weight 179 lb 14.355 oz Most Recent Monitor Data Heart Rate from ECG 97 NIBP 143/94 NIBP BP-Mean 110 Respiration from ECG 15 SpO2 96 I&O: 01/02/20 01/03/20 01/04/20 06:59 06:59 06:59 Intake Total 1692.7 338 Output Total 1805 2015 Balance -112.3 -1677 Result Diagrams: 01/03/20 04:00 01/03/20 04:00 Hospitalist ROS - Medication Medications: Active Medications Generic Name Dose Route Start Last Admin Trade Name Freq PRN Reason Stop Dose Admin Albuterol/Ipratropium 3 ml 01/02/20 16:00 01/03/20 18:35 Duoneb NEB 3 ml [id number] JAREN Administration Atorvastatin Calcium 10 mg 01/02/20 21:00 01/03/20 20:10 Lipitor PO 10 mg HS JAREN Administration Bupropion HCl 150 mg 01/03/20 09:00 01/03/20 07:39 Wellbutrin Xl PO 150 mg DAILY JAREN Administration Enoxaparin Sodium 40 mg 01/03/20 09:00 01/03/20 07:36 Lovenox SC 40 mg 0900 JAREN Administration Levofloxacin 500 mg/ Device 100 mls @ 100 mls/hr 01/03/20 10:00 01/03/20 15: 40 IVPB 100 mls Q24HR JAREN Administration Sodium Chloride 1,000 mls @ 100 mls/hr 01/02/20 15:00 01/03/20 20:23 1/2 Normal Saline IV Not Given .Q10H JAREN Lorazepam 2 mg 01/02/20 15:39 01/02/20 16:40 Ativan SLOW IVP 02/01/20 15:39 2 mg Q1H PRN Administration Breakthrough agitation Methylprednisolone Sodium Succinate 40 mg 01/02/20 14:00 01/03/20 15:40 Solu-Medrol IVP 40 mg Q8HR JAREN Administration Propofol 1,000 mg 01/02/20 15:39 01/03/20 18:49 Diprivan IV 02/01/20 15:39 1,000 mg INF PRN Administration TO ACHIEVE GOAL RASS Protocol Quetiapine Fumarate 200 mg 01/02/20 21:00 01/03/20 20:10 Seroquel PO 200 mg HS JAREN Administration Sertraline HCl 150 mg 01/02/20 21:00 01/03/20 20:09 Zoloft PO 150 mg HS JAREN Administration Sodium Chloride 10 ml 01/02/20 21:00 01/03/20 20:10 Flush - Normal Saline IVF 10 ml Q12HR JAREN Administration - Exam Neck: supple Heart: RRR Respiratory: rhonchi, wheezes Gastrointestinal: soft, normal bowel sounds Hosp A/P (1) COPD exacerbation Code(s): J44.1 - CHRONIC OBSTRUCTIVE PULMONARY DISEASE W (ACUTE) EXACERBATION Status: Acute (2) Acute respiratory failure with hypoxemia Code(s): J96.01 - ACUTE RESPIRATORY FAILURE WITH HYPOXIA Status: Acute - Plan Coronavirus PCR is negative. Continue mechanical ventilation management per pulmonology. Continue scheduled nebulized treatments, corticosteroids, and antibiotics.
[2020-01-04] MEDS: Sodium Chloride 0.45% 1,000 ML IV SCH ×2 (02:10→16:10)
[2020-01-04 03:37] LABS: #Lymphocytes 0.8 thou/uL (1.20-3.40); #Monocytes 0.4 thou/uL (0.11-0.59); #Neutrophils 9.2 thou/uL (1.40-6.50); %Basophils 0.1 % (0.0-1.0); %Eosinophils 0.2 % (0.0-10.0); %Lymphocytes 7.3 % (21.0-51.0); %Monocytes 3.9 % (0.0-10.0); %Neutrophils 88.4 % (42.0-75.0); Hemoglobin 11.5 g/dL (12.0-16.0); Mean Corpuscular HGB CONC 33.9 g/dL (32.0-36.0); Mean Corpuscular Hemoglobin 27.6 pg (27.0-31.0); Mean Corpuscular Volume 81.3 fL (78.0-98.0); Mean Platelet Volume 7.9 fL (7.4-10.4); Platelet Count 232 thou/uL (130-400); RBC Distribution Width 14.2 % (11.5-14.5); Red Blood Cell (RBC) Count 4.19 mill/uL (4.20-5.40); White Blood Cell (WBC) Count 10.4 thou/uL (4.8-10.8)
[2020-01-04 03:57] LABS: Anion Gap 16 mmol/L (10-20); BUN (Urea Nitrogen) 13 mg/dL (9.8-20.1); Calc. Creatinine Clearance 124 mL/min (70-130); Calcium 8.9 mg/dL (7.8-10.44); Carbon Dioxide 18 mmol/L (22-29); Chloride 108 mmol/L (98-107); Estimated GFR-MDRD Greater than 90; Glucose 108 mg/dL (70-105); Potassium 3.8 mmol/L (3.5-5.1); Sodium 138 mmol/L (136-145)
[2020-01-04 06:21] VITALS: BMI 30.7
[2020-01-04] MEDS: methylPREDNISolone Sod Succ 40 MG VIAL IVP SCH ×3 (06:27→21:01)
[2020-01-04] MEDS: Ondansetron PF 4 MG/2 ML Vial IVP PRN ×2 (09:37→17:26)
[2020-01-04] MEDS: Bupropion 150 MG XL TAB PO SCH (09:37)
[2020-01-04] MEDS: Enoxaparin Sodium 40 MG/0.4 ML SYRINGE SC SCH (09:37)
--- NOTE | 2020-01-04 10:59 | PDOC.HOSPP ---
- Subjective Encounter Date: 01/04/20 Subjective: Now extubated Saturating well on HFNC - Objective Vital Signs & Weight: Vital Signs (12 hours) Temp Pulse Resp BP Pulse Ox 01/04/20 09:51 96 01/04/20 09:39 123 H 40 H 84 L 01/04/20 09:20 103 H 18 98 01/04/20 08:00 16 97 01/04/20 07:01 106 H 140/92 H 01/04/20 06:56 105 H 15 99 01/04/20 06:00 14 01/04/20 04:49 92 01/04/20 04:00 98.8 F 14 01/04/20 02:00 15 01/04/20 01:47 99 16 98 01/04/20 01:45 98 01/04/20 00:00 99.7 F H 14 01/03/20 23:52 96 15 97 01/03/20 23:51 94 Weight Admit Weight 179 lb Weight 179 lb Most Recent Monitor Data Heart Rate from ECG 112 NIBP 160/86 NIBP BP-Mean 110 Respiration from ECG 28 SpO2 97 I&O: 01/03/20 01/04/20 01/05/20 06:59 06:59 06:59 Intake Total 1692.7 545 Output Total 9551 8555 475 Balance -112.3 -2695 -475 Result Diagrams: 01/04/20 03:28 01/04/20 03:28 Hospitalist ROS - Medication Medications: Active Medications Generic Name Dose Route Start Last Admin Trade Name Freq PRN Reason Stop Dose Admin Albuterol/Ipratropium 3 ml 01/02/20 16:00 01/04/20 09:39 Duoneb NEB 3 ml [id number] JAREN Administration Atorvastatin Calcium 10 mg 01/02/20 21:00 01/03/20 20:10 Lipitor PO 10 mg HS JAREN Administration Bupropion HCl 150 mg 01/03/20 09:00 01/04/20 09:37 Wellbutrin Xl PO 150 mg DAILY JAREN Administration Enoxaparin Sodium 40 mg 01/03/20 09:00 01/04/20 09:37 Lovenox SC 40 mg 0900 JAREN Administration Levofloxacin 500 mg/ Device 100 mls @ 100 mls/hr 01/03/20 10:00 01/04/20 10: 32 IVPB 100 mls Q24HR JAREN Administration Sodium Chloride 1,000 mls @ 100 mls/hr 01/02/20 15:00 01/04/20 02:10 1/2 Normal Saline IV 1,000 mls .Q10H JAREN Administration Lorazepam 2 mg 01/02/20 15:39 01/02/20 16:40 Ativan SLOW IVP 02/01/20 15:39 2 mg Q1H PRN Administration Breakthrough agitation Methylprednisolone Sodium Succinate 40 mg 01/02/20 14:00 01/04/20 06:27 Solu-Medrol IVP 40 mg Q8HR JAREN Administration Ondansetron HCl 4 mg 01/02/20 10:02 01/04/20 09:37 Zofran IVP 4 mg Q6H PRN Administration Nausea/Vomiting Propofol 1,000 mg 01/02/20 15:39 01/03/20 18:49 Diprivan IV 02/01/20 15:39 1,000 mg INF PRN Administration TO ACHIEVE GOAL RASS Protocol Quetiapine Fumarate 200 mg 01/02/20 21:00 01/03/20 20:10 Seroquel PO 200 mg HS JAREN Administration Sertraline HCl 150 mg 01/02/20 21:00 01/03/20 20:09 Zoloft PO 150 mg HS JAREN Administration Sodium Chloride 10 ml 01/02/20 21:00 01/04/20 09:37 Flush - Normal Saline IVF 10 ml Q12HR JAREN Administration - Exam General Appearance: awake alert Neck: supple, no JVD Heart: RRR Respiratory: normal chest expansion, no tachypnea, wheezes Gastrointestinal: soft, non-tender, non-distended, normal bowel sounds Neurological: cranial nerve grossly intact, no focal deficits Hosp A/P (1) COPD exacerbation Code(s): J44.1 - CHRONIC OBSTRUCTIVE PULMONARY DISEASE W (ACUTE) EXACERBATION Status: Acute (2) Acute respiratory failure with hypoxemia Code(s): J96.01 - ACUTE RESPIRATORY FAILURE WITH HYPOXIA Status: Acute - Plan Coronavirus PCR is negative. Extubated successfully. Continue scheduled nebulized treatments, corticosteroids, and antibiotics.
--- NOTE | 2020-01-04 15:08 | PRG ---
DATE OF SERVICE: 01/04/2020 SUBJECTIVE: Yamilka Foster is awake and alert, giving a thumbs up. She did not have a long expiratory phase. OBJECTIVE: VITAL SIGNS: Heart rate is 100, respiratory rate is 15, oximetry is in the high 90s, blood pressure 134/83 this afternoon. LUNGS: Clear. HEART: Regular rhythm. ABDOMEN: Soft. EXTREMITIES: Without edema. LABORATORY DATA: White count 10.4, hemoglobin 11.5, platelets 232,000. Sodium 138, potassium 3.8, chloride 108, bicarb 18, BUN 13, creatinine 0.67, glucose 108. IMPRESSION: Respiratory failure associated with status asthmaticus, now that appears to be clinically resolving. She met criteria for extubation. This was done successfully. She will start eating and drinking. We will decrease her IV fluids. Tomorrow, we will decrease her steroids. I would keep her in the intensive care unit given how severely bronchospastic she was on admission. We will discontinue her sedation protocol. I will cut her nebulized treatments back to every 4 hours. Overall, I am pleased with her progress. CRITICAL CARE TIME: 30 minutes. Job ID: [id number]
--- NOTE | 2020-01-04 15:12 | EKG ---
Test Reason : Blood Pressure : / mmHG Vent. Rate : 120 BPM Atrial Rate : 120 BPM P-R Int : 132 ms QRS Dur : 072 ms QT Int : 312 ms P-R-T Axes : 040 046 042 degrees QTc Int : 440 ms Sinus tachycardia Otherwise normal ECG Confirmed by ANA STEPHENSON DO ([id number]), senior technical editor BRIDGER CHIANG ([id number] on 01/04/2020 3:11:57 PM Referred By: Confirmed By:ANA STEPHENSON DO
[2020-01-04] MEDS: Atorvastatin Calcium 10 MG TAB PO SCH (21:01)
[2020-01-05 04:03] LABS: Anion Gap 16 mmol/L (10-20); BUN (Urea Nitrogen) 15 mg/dL (9.8-20.1); Calc. Creatinine Clearance 131 mL/min (70-130); Calcium 9.2 mg/dL (7.8-10.44); Carbon Dioxide 20 mmol/L (22-29); Chloride 106 mmol/L (98-107); Estimated GFR-MDRD Greater than 90; Glucose 102 mg/dL (70-105); Sodium 138 mmol/L (136-145)
[2020-01-05 04:04] LABS: Band 5 % (5-11); Hemoglobin 11.3 g/dL (12.0-16.0); Lymphocytes 7 % (21-51); MDiff Complete? YES; Mean Corpuscular HGB CONC 33.8 g/dL (32.0-36.0); Mean Corpuscular Hemoglobin 27.3 pg (27.0-31.0); Mean Corpuscular Volume 80.7 fL (78.0-98.0); Mean Platelet Volume 7.5 fL (7.4-10.4); Monocytes 4 % (0-10); Neutrophil 83 % (42-75); Platelet Count 258 thou/uL (130-400); RBC Distribution Width 14.2 % (11.5-14.5); Reactive Lymphocytes 1 % (0-10); Red Blood Cell (RBC) Count 4.13 mill/uL (4.20-5.40); White Blood Cell (WBC) Count 10.5 thou/uL (4.8-10.8)
[2020-01-05] MEDS: methylPREDNISolone Sod Succ 40 MG VIAL IVP SCH ×3 (06:05→23:28)
[2020-01-05] MEDS: Enoxaparin Sodium 40 MG/0.4 ML SYRINGE SC SCH (08:22)
[2020-01-05] MEDS: Bupropion 150 MG XL TAB PO SCH (08:23)
[2020-01-05] MEDS: Sodium Chloride 0.45% 1,000 ML IV SCH (10:34)
[2020-01-05] MEDS ORDERED: ALPRAZolam 0.25 MG TAB PO PRN (11:06)
--- NOTE | 2020-01-05 11:21 | PRG ---
DATE OF SERVICE: 01/05/2020 SUBJECTIVE: Joss Foster says she is feeling well. She was a little hypoxic yesterday afternoon, was placed on high-flow oxygen, and her symptoms improved immediately. I suspect this is more of an anxiety reaction. She may do well with low dose of Xanax while she is in hospital. She has been stable postextubation for over 24 hours . HEART: Regular rhythm. ABDOMEN: Soft Her antibiotics can be switched to p.o. We will continue with IV steroids for now, probably be in the hospital at least on Wednesday or Wednesday, COVID was ruled out several days ago. Job ID: [id number]
--- NOTE | 2020-01-05 13:50 | PDOC.HOSPP ---
- Subjective Encounter Date: 01/05/20 Subjective: Feels better Less wheezing On HFNC 46% - Objective Vital Signs & Weight: Vital Signs (12 hours) Temp Pulse Resp Pulse Ox 01/05/20 12:00 98.3 F 01/05/20 10:13 96 16 94 L 01/05/20 07:05 95 01/05/20 07:00 98.8 F 01/05/20 06:40 99 01/05/20 06:38 83 15 99 01/05/20 04:00 97.9 F 01/05/20 02:13 94 14 96 Weight Admit Weight 179 lb Weight 179 lb 3.773 oz Most Recent Monitor Data Heart Rate from ECG 87 NIBP 131/86 NIBP BP-Mean 101 Respiration from ECG 16 SpO2 98 I&O: 01/04/20 01/05/20 01/06/20 06:59 06:59 06:59 Intake Total 545 2604 120 Output Total 3240 3545 370 [facility] -2695 -941 -250 Result Diagrams: 01/05/20 03:28 01/05/20 03:28 Hospitalist ROS - Medication Medications: Active Medications Generic Name Dose Route Start Last Admin Trade Name Freq PRN Reason Stop Dose Admin Albuterol/Ipratropium 3 ml 01/04/20 18:30 01/05/20 10:13 Duoneb NEB 3 ml [id number] JAREN Administration Atorvastatin Calcium 10 mg 01/02/20 21:00 01/04/20 21:01 Lipitor PO 10 mg HS JAREN Administration Bupropion HCl 150 mg 01/03/20 09:00 01/05/20 08:23 Wellbutrin Xl PO 150 mg DAILY JAREN Administration Enoxaparin Sodium 40 mg 01/03/20 09:00 01/05/20 08:22 Lovenox SC 40 mg 0900 JAREN Administration Sodium Chloride 1,000 mls @ 50 mls/hr 01/04/20 14:49 01/05/20 10:34 1/2 Normal Saline IV Not Given .Q20H JAREN Methylprednisolone Sodium Succinate 20 mg 01/05/20 11:08 01/05/20 13:36 Solu-Medrol IVP 20 mg Q8HR JAREN Administration Ondansetron HCl 4 mg 01/02/20 10:02 01/04/20 17:26 Zofran IVP 4 mg Q6H PRN Administration Nausea/Vomiting Quetiapine Fumarate 200 mg 01/02/20 21:00 01/04/20 21:01 Seroquel PO 200 mg HS JAREN Administration Sertraline HCl 150 mg 01/02/20 21:00 01/04/20 21:01 Zoloft PO 150 mg HS JAREN Administration Sodium Chloride 10 ml 01/02/20 21:00 01/05/20 08:23 Flush - Normal Saline IVF 10 ml Q12HR JAREN Administration Sodium Chloride 10 ml 01/02/20 10:30 01/04/20 21:01 Flush - Normal Saline IVF 10 ml PRN PRN Administration Saline Flush - Exam General Appearance: awake alert ENT: normocephalic atraumatic Neck: supple Heart: RRR, no murmur, no gallops, no rubs Respiratory: wheezes Gastrointestinal: soft, non-tender, non-distended, normal bowel sounds Neurological: cranial nerve grossly intact, no focal deficits Hosp A/P (1) COPD exacerbation Code(s): J44.1 - CHRONIC OBSTRUCTIVE PULMONARY DISEASE W (ACUTE) EXACERBATION Status: Acute (2) Acute respiratory failure with hypoxemia Code(s): J96.01 - ACUTE RESPIRATORY FAILURE WITH HYPOXIA Status: Acute - Plan Coronavirus PCR is negative. Extubated successfully. Continue scheduled nebulized treatments, corticosteroids, and antibiotics. Wean off HFNC as tolerated.
[2020-01-05] MEDS: Atorvastatin Calcium 10 MG TAB PO SCH (20:47)
[2020-01-06] MEDS: methylPREDNISolone Sod Succ 40 MG VIAL IVP SCH (05:35)
[2020-01-06] MEDS: Bupropion 150 MG XL TAB PO SCH (08:40)
[2020-01-06] MEDS: Enoxaparin Sodium 40 MG/0.4 ML SYRINGE SC SCH (08:40)
[2020-01-06] MEDS ORDERED: Lorazepam 1 MG TAB PO SCH (09:30)
[2020-01-06] MEDS ORDERED: predniSONE 20 MG TAB PO SCH (10:30)
--- NOTE | 2020-01-06 10:31 | PRG ---
DATE OF SERVICE: 01/06/2020 SERVICE: Pulmonary Medicine. INTERVAL HISTORY: The patient is doing well from a respiratory standpoint. She has been weaned down to high-flow nasal cannula very low rate. As such, we might be able to get her on regular nasal cannula. She denies any shortness of breath, though she is a little anxious. Denies any fevers or chills. There were no overnight events. PHYSICAL EXAMINATION: VITAL SIGNS: Afebrile, pulse 86, blood pressure 122/74, respirations 16, saturation 98%, currently on 28% FiO2 delivered via high-flow. GENERAL: The patient is awake and alert, in no apparent distress. LUNGS: Good air entry. Dependent crackles are extremely minimal. No prolonged expiratory phase or wheezing is appreciated today. HEART: Normal rate, regular. ABDOMEN: Soft, nontender, nondistended. Bowel sounds are positive. MUSCULOSKELETAL: No cyanosis or clubbing. No pitting in the bilateral lower extremities. NEUROLOGIC: Grossly nonfocal. LABORATORY DATA: WBC 10.5, hemoglobin 11.3, and platelets 285,000. PH 7.22, pCO2 of 59, PO2 of 68. Basic metabolic profile is completely unremarkable except for a bicarb of 20. COVID was negative. Respiratory virus panel is unremarkable as is influenza A and B. ASSESSMENT: 1. Acute hypoxic and hypercapnic respiratory failure, resolving. 2. Chronic obstructive pulmonary disease versus asthma with acute exacerbation. DISCUSSION AND PLAN: I will do a KUB to make sure large gastric bubble has resolved. She really does not have significant hyperexpanded lung key suggestive of chronic lung disease. I will provide her with some anxiety medicine and transition her out of the ICU to the regular medical unit. We will try to get her on to regular nasal cannula and wean that through time as tolerated. Pulmonary/Critical Care will continue to follow. Job ID: [id number]
[2020-01-06] MEDS ORDERED: Furosemide 20 MG/2 ML VIAL SLOW IVP SCH (10:45)
--- NOTE | 2020-01-06 11:40 | RAD ---
SUPINE ABDOMEN: HISTORY: Abdominal distention. FINDINGS: The bowel gas pattern is unremarkable. There is scattered stool and gas throughout the colon. Small b owel gas pattern appears normal. New outlines and psoas outlines are delineated. No evidence of mass of abnormal calcification. post cholecystectomy clips are noted. IMPRESSION: Unremarkable bowel gas pattern. POS: [facility]
--- NOTE | 2020-01-06 11:42 | PDOC.HOSPP ---
- Subjective Encounter Date: 01/06/20 Subjective: Feels better. Now saturating well on 3L NC. - Objective Vital Signs & Weight: Vital Signs (12 hours) Temp Pulse Resp BP Pulse Ox 01/06/20 11:34 98.6 F 83 18 117/76 95 01/06/20 07:04 94 L 01/06/20 06:36 93 L 01/06/20 06:34 75 18 93 L 01/06/20 05:00 97.9 F 01/06/20 02:46 86 16 92 L 01/06/20 00:00 97.7 F Weight Admit Weight 179 lb Weight 179 lb 3.773 oz Most Recent Monitor Data Heart Rate from ECG 86 NIBP 122/74 NIBP BP-Mean 90 Respiration from ECG 16 SpO2 98 I&O: 01/05/20 01/06/20 01/07/20 06:59 06:59 06:59 Intake Total 2604 1230 360 Output Total 3545 2180 200 Balance -941 -950 160 Result Diagrams: 01/05/20 03:28 01/05/20 03:28 Hospitalist ROS - Medication Medications: Active Medications Generic Name Dose Route Start Last Admin Trade Name Freq PRN Reason Stop Dose Admin Atorvastatin Calcium 10 mg 01/02/20 21:00 01/05/20 20:47 Lipitor PO 10 mg HS JAREN Administration Bupropion HCl 150 mg 01/03/20 09:00 01/06/20 08:40 Wellbutrin Xl PO 150 mg DAILY JAREN Administration Enoxaparin Sodium 40 mg 01/03/20 09:00 01/06/20 08:40 Lovenox SC 40 mg 0900 JAREN Administration Levofloxacin 500 mg 01/06/20 06:00 01/06/20 05:35 Levaquin PO 500 mg 0600 JAREN Administration Ondansetron HCl 4 mg 01/02/20 10:02 01/04/20 17:26 Zofran IVP 4 mg Q6H PRN Administration Nausea/Vomiting Quetiapine Fumarate 200 mg 01/02/20 21:00 01/05/20 20:47 Seroquel PO 200 mg HS JAREN Administration Sertraline HCl 150 mg 01/02/20 21:00 01/05/20 20:42 Zoloft PO 150 mg HS JAREN Administration Sodium Chloride 10 ml 01/02/20 21:00 01/06/20 08:41 Flush - Normal Saline IVF 10 ml Q12HR JAREN Administration Sodium Chloride 10 ml 01/02/20 10:30 01/04/20 21:01 Flush - Normal Saline IVF 10 ml PRN PRN Administration Saline Flush - Exam General Appearance: awake alert ENT: normocephalic atraumatic Neck: supple, no JVD Heart: RRR, no murmur, no gallops, no rubs, normal peripheral pulses Respiratory: CTAB, no wheezes, no rales, no ronchi, normal chest expansion Gastrointestinal: soft, non-tender, non-distended, normal bowel sounds Neurological: cranial nerve grossly intact, no focal deficits Hosp A/P (1) COPD exacerbation Code(s): J44.1 - CHRONIC OBSTRUCTIVE PULMONARY DISEASE W (ACUTE) EXACERBATION Status: Acute (2) Acute respiratory failure with hypoxemia Code(s): J96.01 - ACUTE RESPIRATORY FAILURE WITH HYPOXIA Status: Acute - Plan Coronavirus PCR is negative. Respiratory status improved significantly. Continue scheduled nebulized treatments, corticosteroids, and antibiotics. Wean off NC as tolerated.
[2020-01-06] MEDS: Atorvastatin Calcium 10 MG TAB PO SCH (21:54)
[2020-01-07 05:58] LABS: Phosphorus 3.8 mg/dL (2.3-4.7)
[2020-01-07 05:59] LABS: Anion Gap 12 mmol/L (10-20); BUN (Urea Nitrogen) 18 mg/dL (9.8-20.1); Calc. Creatinine Clearance 110 mL/min (70-130); Calcium 9.8 mg/dL (7.8-10.44); Carbon Dioxide 28 mmol/L (22-29); Chloride 102 mmol/L (98-107); Estimated GFR-MDRD 81; Glucose 106 mg/dL (70-105); Magnesium 2.1 mg/dL (1.6-2.6); Sodium 139 mmol/L (136-145)
[2020-01-07 06:06] LABS: Potassium 2.8 mmol/L (3.5-5.1)
[2020-01-07] MEDS ORDERED: Potassium Chloride 20 MEQ TAB PO SCH ×3 (06:15→12:00)
[2020-01-07] MEDS ORDERED: Potassium Chloride 20 MEQ in Premix Bag 1 BAG IVPB SCH (06:15)
[2020-01-07] MEDS ORDERED: predniSONE 20 MG TAB PO SCH (08:00)
[2020-01-07] MEDS: Bupropion 150 MG XL TAB PO SCH (08:33)
[2020-01-07] MEDS: Enoxaparin Sodium 40 MG/0.4 ML SYRINGE SC SCH (08:34)
[2020-01-07 16:34] VITALS: BP 108/76; TEMP 98
--- NOTE | 2020-01-08 09:59 | DIS ---
DATE OF ADMISSION: 01/02/2020 DATE OF DISCHARGE: 01/07/2020 DISCHARGE DIAGNOSES: 1. Acute respiratory failure with hypoxemia. 2. Chronic obstructive pulmonary disease exacerbation. DISCHARGE MEDICATIONS: 1. Levaquin 500 mg orally daily for 4 days. 2. Prednisone 40 mg orally daily for 5 days. 3. Wellbutrin XL 150 mg orally daily. 4. Pravastatin 40 mg orally nightly. 5. Seroquel 200 mg orally nightly. 6. Zoloft 150 mg orally nightly. 7. Ventolin nebulized q.3 hours as needed for shortness of breath or wheezing. 8. Lorazepam 1 mg orally daily as needed for anxiety. 9. Mometasone/formoterol 100/5 one puff inhaled twice daily. HISTORY OF PRESENT ILLNESS AND HOSPITAL COURSE: The patient is a 54-year-old female with past medical history of chronic obstructive pulmonary disease, hyperlipidemia, and hypertension, who presented to the hospital with worsening shortness of breath, productive cough, and wheezing for 3 days prior to presentation. The patient was admitted to the hospital with impression of COPD exacerbation and COVID-19 rule out. She deteriorated within a few hours of presentation and was subsequently intubated and mechanically ventilated. Her COVID-19 test came back negative. The patient was managed with scheduled nebulized treatments, antibiotics, and corticosteroids, and was weaned off mechanical ventilation to high-flow nasal cannula. Management was continued, and the patient was weaned off high-flow nasal cannula and gradually completely off oxygen through the duration of her hospital stay. On the day of discharge, the patient was saturating 94% to 95% on room air at rest and 89% on exertion. Her chest was clear to auscultation bilaterally. Job ID: [id number]
== END 2020-01-07 12:55 | disposition home or self-care (01) | DRG 208 ==
LOC: ERS 07:34 → T4-B 11:52 → CCU 14:18 → T4-B 01-06 10:20
PROVIDERS: ADMIT Internal Medicine; ATTEND Student in an Organized Health Care Education/Training Program
PROC: 5A1945Z Respiratory Ventilation, 24-96 Consecutive Hours (ICD-10-PCS; principal; 2020-01-02)
PROC: 0BH18EZ Insertion of Endotracheal Airway into Trachea, Via Natural or Artificial Opening Endoscopic (ICD-10-PCS; 2020-01-02)
PROC: 5A09357 Assistance with Respiratory Ventilation, Less than 24 Consecutive Hours, Continuous Positive Airway Pressure (ICD-10-PCS; 2020-01-04)
DX: J96.01 Acute respiratory failure with hypoxia (principal); J44.1 Chronic obstructive pulmonary disease with (acute) exacerbation; J45.902 Unspecified asthma with status asthmaticus; Z20.828 Contact with and (suspected) exposure to other viral communicable diseases; J96.02 Acute respiratory failure with hypercapnia; E78.5 Hyperlipidemia, unspecified; E66.9 Obesity, unspecified; I10 Essential (primary) hypertension; Z68.30 Body mass index [BMI] 30.0-30.9, adult; Z90.49 Acquired absence of other specified parts of digestive tract; Z28.21 Immunization not carried out because of patient refusal; Z79.899 Other long term (current) drug therapy; Z79.51 Long term (current) use of inhaled steroids
CPT/HCPCS: 36415; 71045; 74018; 80048; 80053; 82805; 83605; 83735; 84100; 84484; 85007; 85025; 85027; 87633; 87798; 87804; 93005; 94002; 94003; 94640; 96361; 96365; 96367; 96375; J0692; J1650; J1940; J1956; J2060; J2405; J2704; J2920; J3475; J3480; J3490; J7512; J7620; U0001

== ENCOUNTER 2020-09-21 14:15 | Emergency (ER) | payer SELFPAY ==
--- NOTE | 2020-09-21 15:12 | RAD ---
XR Chest 1 View Portable HISTORY: Exacerbation of asthma COMPARISON: 01/03/2020, 08/30/2019 FINDINGS: The heart size is normal. The lungs are well expanded without focal areas of consolidation, pneumothorax or pleural effusions. IMPRESSION: No radiographic evidence of acute cardiopulmonary process.
[2020-09-21] MEDS ORDERED: methylPREDNISolone Sod Succ/PF 125 MG/2 ML VIAL ONE (15:15)
== END 2020-09-21 17:35 | disposition home or self-care (01) ==
LOC: ERS 14:15
DX: J44.1 Chronic obstructive pulmonary disease with (acute) exacerbation (principal); E78.5 Hyperlipidemia, unspecified; E78.00 Pure hypercholesterolemia, unspecified; I10 Essential (primary) hypertension
CPT/HCPCS: 71045; 93005; 94640; 96374; J2930

== ENCOUNTER 2020-12-24 16:08 | Outpatient (CLI) | payer OTHER | END 2020-12-24 16:09 | disposition home or self-care (01) | LOC: BICRAD 16:08 | DX: S20.212A Contusion of left front wall of thorax, initial encounter (principal); R91.8 Other nonspecific abnormal finding of lung field ==

== ENCOUNTER 2021-04-18 14:29 | Outpatient (CLI) | payer OTHER | END 2021-04-18 14:30 | disposition home or self-care (01) | LOC: BICRAD 14:29 | PROVIDERS: ATTEND Internal Medicine Critical Care Medicine | DX: R06.00 Dyspnea, unspecified (principal); R91.8 Other nonspecific abnormal finding of lung field | CPT/HCPCS: 71046 ==

== ENCOUNTER 2021-05-21 16:14 | Outpatient (CLI) | payer OTHER | END 2021-05-21 16:15 | disposition home or self-care (01) | LOC: BICRAD 16:14 | PROVIDERS: ATTEND Internal Medicine Critical Care Medicine | DX: R06.00 Dyspnea, unspecified (principal) | CPT/HCPCS: 71046 ==

== ENCOUNTER 2021-09-02 14:51 | Emergency (ER) | payer SELFPAY ==
[2021-09-02 15:38] LABS: #Eosinphils 0.4 thou/uL (0.0-0.7); #Lymphocytes 1.4 thou/uL (1.20-3.40); #Monocytes 0.5 thou/uL (0.11-0.59); #Neutrophils 6.2 thou/uL (1.40-6.50); %Basophils 0.1 % (0.0-1.0); %Eosinophils 4.8 % (0.0-10.0); %Lymphocytes 16.3 % (21.0-51.0); %Monocytes 5.7 % (0.0-10.0); %Neutrophils 73.1 % (42.0-75.0); Hemoglobin 11.3 g/dL (12.0-16.0); Mean Corpuscular HGB CONC 34.6 g/dL (32.0-36.0); Mean Corpuscular Hemoglobin 29.1 pg (27.0-31.0); Mean Corpuscular Volume 84.3 fL (78.0-98.0); Mean Platelet Volume 6.4 fL (7.4-10.4); Platelet Count 331 thou/uL (130-400); Red Blood Cell (RBC) Count 3.87 mill/uL (4.20-5.40); White Blood Cell (WBC) Count 8.4 thou/uL (4.8-10.8)
[2021-09-02 16:00] LABS: ALT (SGPT) 10 U/L (8-55); AST (SGOT) 14 U/L (5-34); Albumin 3.5 g/dL (3.5-5.0); Alkaline Phosphatase 87 U/L (40-110); Anion Gap 12 mmol/L (10-20); BUN (Urea Nitrogen) 6 mg/dL (9.8-20.1); Bilirubin, Total 0.4 mg/dL (0.2-1.2); Calc. Creatinine Clearance 0 mL/min (70-130); Calcium 9.7 mg/dL (7.8-10.44); Carbon Dioxide 25 mmol/L (22-29); Chloride 107 mmol/L (98-107); Globulin 3.9 g/dL (2.4-3.5); Glucose 99 mg/dL (70-105); Potassium 3.2 mmol/L (3.5-5.1); Protein, Total 7.4 g/dL (6.0-8.3); Sodium 141 mmol/L (136-145)
[2021-09-02] MEDS ORDERED: Potassium Chloride 20 MEQ TAB ONE (16:30)
[2021-09-02] MEDS ORDERED: Ketorolac Tromethamine 30 MG/ML VIAL ONE (16:37)
== END 2021-09-02 17:42 | disposition home or self-care (01) ==
LOC: ERS 14:51
DX: R07.89 Other chest pain (principal); E78.5 Hyperlipidemia, unspecified; E78.00 Pure hypercholesterolemia, unspecified
CPT/HCPCS: 36415; 71045; 71275; 80053; 84484; 85025; 85379; 93005; 96374; J1885

== ENCOUNTER 2021-11-06 09:09 | Outpatient (CLI) | payer OTHER, SELFPAY | END 2021-11-06 09:10 | disposition home or self-care (01) | LOC: RAD 09:09 | PROVIDERS: ATTEND Internal Medicine Critical Care Medicine | DX: R06.00 Dyspnea, unspecified (principal) | CPT/HCPCS: 71046 ==

== ENCOUNTER 2023-02-24 13:48 | Outpatient (CLI) | payer OTHER | END 2023-02-24 13:49 | disposition home or self-care (01) | LOC: RAD 13:48 | PROVIDERS: ATTEND Internal Medicine Critical Care Medicine | DX: R06.00 Dyspnea, unspecified (principal) | CPT/HCPCS: 71046 ==

== ENCOUNTER 2023-04-13 13:57 | Emergency (ER) | payer SELFPAY ==
[2023-04-13] MEDS ORDERED: HYDROcodone/Acetaminophen 5/325 mg Tablet ONE (14:34)
[2023-04-13] MEDS ORDERED: Ketorolac Tromethamine 30 MG/ML VIAL ONE (14:34)
== END 2023-04-13 15:28 | disposition home or self-care (01) ==
LOC: ERS 13:57
DX: M17.12 Unilateral primary osteoarthritis, left knee (principal); Z87.891 Personal history of nicotine dependence
CPT/HCPCS: 96372; J1885